=== PATIENT | male | born 1990 | race Caucasian/White ===

== ENCOUNTER → 2022-04-10 | Outpatient (CLI) | payer OTHER ==
[~2022-04-10] MED LIST: PROTONIX40 MG PO; ZYRTEC10 MG PO
== END ==
LOC: KOH-I 14:36
DX: M54.2 Cervicalgia (principal); M25.511 Pain in right shoulder; M47.812 Spondylosis without myelopathy or radiculopathy, cervical region
CPT/HCPCS: 72040; 73030